=== PATIENT | male | born 1930 | race Caucasian/White ===

== ENCOUNTER 2017-10-31 13:04 | Emergency (ER) | payer MEDICARE, BC ==
[2017-10-31 14:35] LABS: #Eosinphils 0.2 thou/uL (0.0-0.7); #Lymphocytes 0.9 thou/uL (1.20-3.40); #Monocytes 0.8 thou/uL (0.11-0.59); #Neutrophils 5.1 thou/uL (1.40-6.50); %Basophils 0.5 % (0.0-1.0); %Lymphocytes 12.4 % (21.0-51.0); %Monocytes 11.8 % (0.0-10.0); %Neutrophils 72.3 % (42.0-75.0); Hemoglobin 11.7 g/dL (14.0-18.0); Mean Corpuscular HGB CONC 33.9 g/dL (32.0-36.0); Mean Corpuscular Hemoglobin 33.5 pg (27.0-31.0); Mean Corpuscular Volume 98.8 fl (80.0-94.0); Mean Platelet Volume 7.6 fL (7.4-10.4); Platelet Count 176 thou/uL (130-400); RBC Distribution Width 12.4 % (11.5-14.5); Red Blood Cell (RBC) Count 3.49 mill/uL (4.70-6.10)
[2017-10-31 14:44] LABS: INR-International Normal Ratio 1.7; Prothrombin Time 20.7 SEC (12.0-14.7)
[2017-10-31 14:58] LABS: ALT (SGPT) 34 U/L (8-55); AST (SGOT) 53 U/L (5-34); Albumin 3.2 g/dL (3.4-4.8); Alkaline Phosphatase 122 U/L (40-150); Anion Gap 9 mmol/L (10-20); BUN (Urea Nitrogen) 14 mg/dL (8.4-25.7); Bilirubin, Total 0.8 mg/dL (0.2-1.2); Calc. Creatinine Clearance 0 mL/min (70-130); Calcium 8.8 mg/dL (7.8-10.44); Carbon Dioxide 31 mmol/L (23-31); Chloride 106 mmol/L (98-107); Estimated GFR-MDRD 66; Globulin 2.7 g/dL (2.4-3.5); Glucose 117 mg/dL (83-110); Potassium 3.2 mmol/L (3.5-5.1); Protein, Total 5.9 g/dL (5.8-8.1); Sodium 143 mmol/L (136-145)
[2017-10-31] MEDS ORDERED: Lidocaine 1% w/Epinephrine 1:100K 20 ML VIAL ONE (14:58)
--- NOTE | 2017-10-31 15:18 | CT ---
CT BRAIN WITHOUT CONTRAST: Date: 10/31/17 HISTORY: Fall. Trauma. COMPARISON: None. FINDINGS: No acute territorial infarct or hemorrhage. No midline shift or mass effect. Moderate atrophy. 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 Old lacunar infarcts. The calvarium is intact. Paranasal sinuses and mastoids are clear. There appear s to be a soft tissue contusion over the right forehead. IMPRESSION: 1. No acute intracranial abnormality. 2. Extensive atrophy and microvascular ischemic changes. 3. 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 No new hemorrhage. 4. 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 POS: [facility]
--- NOTE | 2017-10-31 15:20 | CT ---
CT CERVICAL SPINE WITHOUT CONTRAST: Date: 10/31/17 HISTORY: Fall, trauma, pain. COMPARISON: None. FINDINGS: The occipital condyles are intact. Odontoid process is intact. Moderate facet arthrosis. No displaced fracture or malalignment of the cervical spine. There is what appear to be some confluent opacities, possibly scarring, in the lung apices. This appe ars more confluent than the comparison CT examination from 2016. Paraspinal soft tissues are unremarkable. There are severe calcifications of the proximal bilateral i nternal carotid arteries. IMPRESSION: 1. No acute fracture or malalignment of the cervical spine. 2. Confluent opacity in the right lung apex, worse from the 2016 examination and may reflect scarrin g. There are also some opacities in the left upper lobe that may reflect aspiration. Nonemergent foll ow-up CT of the chest with contrast on an outpatient basis recommended. POS: [facility]
[2017-10-31] MEDS ORDERED: Adacel (T-DAP) 0.5 ML VIAL ONE (15:32)
[2017-10-31] MEDS ORDERED: Potassium Chloride 20 MEQ TAB ONE (16:16)
--- NOTE | 2017-10-31 16:16 | RAD ---
RIGHT HAND 3 VIEWS: Date: 10/31/17 HISTORY: Fall. COMPARISON: None. FINDINGS: There is narrowing of the radiocarpal joint. There are erosions of the scapholunate interval. No disp laced fracture or malalignment is appreciated. 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 Moderate vascular calcifications. IMPRESSION: No acute abnormality. Chronic changes. POS: [facility]
--- NOTE | 2017-10-31 16:28 | RAD ---
RIGHT FOREARM 2 VIEWS: Date: 10/31/17 HISTORY: Fall. COMPARISON: None. FINDINGS: Forearm is intact. IMPRESSION: Forearm is intact. POS: [facility]
--- NOTE | 2017-10-31 16:29 | RAD ---
RIGHT KNEE 4 VIEWS: Date: 10/31/17 HISTORY: Fall. COMPARISON: None. FINDINGS: No significant joint effusion. Central osteophyte noted at the weightbearing surface lateral femoral condyle with subchondral erosion and likely a subchondral impaction fracture, chronic. IMPRESSION: No acute abnormality. POS: [facility]
--- NOTE | 2017-10-31 16:30 | RAD ---
RIGHT TIBIA AND FIBULA 2 VIEWS: Date: 10/31/17 HISTORY: Fall. COMPARISON: None. FINDINGS: No displaced fracture or malalignment of the tibia or fibula. IMPRESSION: No displaced fracture or malalignment. POS: [facility]
--- NOTE | 2017-10-31 16:32 | RAD ---
CHEST 1 VIEW: Date: 10/31/17 HISTORY: Fall. COMPARISON: Chest radiograph from 2016. FINDINGS: Heart size markedly enlarged. Moderate interstitial and alveolar edema. There are right middle and ri ght lower lobe air space opacities. No pneumothorax. Likely small layering pleural effusions. No acut e displaced rib fracture. Old right-sided rib fractures. IMPRESSION: 1. Cardiomegaly, small effusions, and moderate edema. 2. Right middle and lower lobe air space opacities may reflect superimposed alveolar edema versus in filtrate. Follow-up recommended. POS: [facility]
[2017-10-31] MEDS ORDERED: Bacitracin Zinc 1 Packet ONE ×3 (16:38→17:13)
== END 2017-10-31 19:16 | disposition home or self-care (01) ==
LOC: ERS 13:04
DX: S01.81XA Laceration without foreign body of other part of head, initial encounter (principal); S51.011A Laceration without foreign body of right elbow, initial encounter; J18.9 Pneumonia, unspecified organism; I25.10 Atherosclerotic heart disease of native coronary artery without angina pectoris; I48.91 Unspecified atrial fibrillation; E03.9 Hypothyroidism, unspecified; M19.90 Unspecified osteoarthritis, unspecified site; W18.30XA Fall on same level, unspecified, initial encounter
CPT/HCPCS: 12013; 70450; 71045; 72125; 80053; 83605; 85025; 85610; 90471; 90715; J2001